=== PATIENT | female | born 1945 | race Caucasian/White ===

== ENCOUNTER 2019-01-17 18:00 | Emergency (ER) | payer SELFPAY ==
[~2019-01-17] VITALS: Ht 180.3 cm; Wt 81.6 kg
[2019-01-17 18:08] VITALS: BP 154/92
--- NOTE | 2019-01-17 18:19 | NUR ---
PATIENT LEFT WITHOUT BEING SEEN BY DR. QUESADA. NO FURTHER CARE PROVIDED FOR PATIENT.
== END 2019-01-17 18:19 | disposition left against medical advice (07) ==
LOC: MED 18:00
DX: R51 Headache (principal); R73.9 Hyperglycemia, unspecified; Z53.21 Procedure and treatment not carried out due to patient leaving prior to being seen by health care provider